=== PATIENT | female | born 1950 | race Caucasian/White ===

== ENCOUNTER 2021-11-20 07:53 | Outpatient (CLI) | payer MEDICARE, OTHER, SELFPAY ==
--- NOTE | 2021-11-13 14:33 | ONC.NURNOTE ---
Received referral from primary care to see patient again per: Dr. Contreras follow up new spot noted on rib. Looking through [facility], it noted abnormal marrow edema involving the right proximal left 10th rib may be secondary to stress reaction or degenerative changes at the left costovertebral joint. No discrete fracture identified. Consider follow up with CT if there is clinical concern for fracture. Carrier Operator contacted [facility] and they could find no other documentation regarding rationale for seeing. Carrier Operator left message earlier this week as well. Patient not scheduled, will await more information if needed.
== END 2021-11-20 07:54 | disposition home or self-care (01) ==
LOC: INJ CL 07:56
PROVIDERS: PCP Family Medicine; Visit Provider Family Medicine
DX: M51.36 Other intervertebral disc degeneration, lumbar region (principal); M54.16 Radiculopathy, lumbar region
CPT/HCPCS: 62323; J0702; Q9966

== ENCOUNTER 2022-01-11 09:41 | Outpatient (CLI) | payer MEDICARE, OTHER, SELFPAY ==
--- NOTE | 2022-01-11 12:01 | W.ANESCHARGE ---
Anesthesia Charges Start Date/Time Anesthesia Start Date: 01/11/22 Anesthesia Start Time: 11:28 Stop Date/Time Anesthesia Stop Date: 01/11/22 Anesthesia Stop Time: 11:58 Summary Emergency: No Extremes of Age: Over 71-CPT [id number]
== END 2022-01-11 09:42 | disposition home or self-care (01) ==
PROVIDERS: PCP Family Medicine; Visit Provider Internal Medicine Gastroenterology
DX: Z12.11 Encounter for screening for malignant neoplasm of colon (principal); K63.5 Polyp of colon; Z86.010 Personal history of colon polyps
CPT/HCPCS: 00811; 45380; 88305; 99100

== ENCOUNTER 2022-03-02 09:07 | Outpatient (CLI) | payer MEDICARE, OTHER, SELFPAY ==
[2022-03-02 14:36] LABS: Albumin* 4.6 g/dL (3.3-5.0); Chloride* 87 mmol/L (96-114)
[2022-03-02 14:37] LABS: Potassium* 4.5 mmol/L (3.6-5.1); Sodium* 128 mmol/L (135-149)
[2022-03-02 14:39] LABS: Alkaline Phosphatase* 104 U/L (40-150); Aspartate Amino Transferase* 59 U/L (12-35); Bilirubin Total* 0.4 mg/dL (0.1-1.5); Blood Urea Nitrogen* 15 mg/dL (7-30); Carbon Dioxide* 30 mmol/L (20-32); Creatinine* 0.5 mg/dL (0.5-1.5); Estimated Glomerular Filt Rate 101 ml/min
[2022-03-02 14:40] LABS: Alanine Aminotransferase* 49 U/L (4-35); Calcium* 9.1 mg/dL (8.4-10.6); Glucose* 100 mg/dL (60-115)
== END 2022-03-02 09:08 | disposition home or self-care (01) ==
LOC: FRMREF 09:19
PROVIDERS: PCP Family Medicine; Visit Provider Dermatology
DX: L30.9 Dermatitis, unspecified (principal)
CPT/HCPCS: 80053

== ENCOUNTER 2022-03-23 08:46 | Outpatient (CLI) | payer MEDICARE, OTHER, SELFPAY | END 2022-03-23 08:47 | disposition home or self-care (01) | LOC: INJ CL 08:47 | PROVIDERS: PCP Family Medicine; Visit Provider Family Medicine | DX: M51.36 Other intervertebral disc degeneration, lumbar region (principal); M54.16 Radiculopathy, lumbar region | CPT/HCPCS: 62323; J0702; Q9966 ==

== ENCOUNTER 2022-04-27 08:48 | Outpatient (CLI) | payer MEDICARE, OTHER, SELFPAY | END 2022-04-27 08:49 | disposition home or self-care (01) | LOC: INJ CL 08:49 | PROVIDERS: PCP Family Medicine; Visit Provider Family Medicine | DX: M51.36 Other intervertebral disc degeneration, lumbar region (principal); M54.16 Radiculopathy, lumbar region | CPT/HCPCS: 62323; J0702; Q9966 ==

== ENCOUNTER 2023-01-04 06:39 | Outpatient (CLI) | payer MEDICARE, OTHER, SELFPAY | END 2023-01-04 06:40 | disposition home or self-care (01) | LOC: INJ CL 06:39 | PROVIDERS: PCP Family Medicine; Visit Provider Family Medicine | DX: M54.16 Radiculopathy, lumbar region (principal); M51.36 Other intervertebral disc degeneration, lumbar region | CPT/HCPCS: 62323; J0702; Q9966 ==

== ENCOUNTER 2023-09-23 12:58 | Outpatient (CLI) | payer MEDICARE, OTHER, SELFPAY | END 2023-09-23 12:59 | disposition home or self-care (01) | LOC: INJ CL 13:00 | PROVIDERS: PCP Family Medicine; Visit Provider Family Medicine | DX: M54.16 Radiculopathy, lumbar region (principal); M51.36 Other intervertebral disc degeneration, lumbar region | CPT/HCPCS: 62323; Q9966 ==

== ENCOUNTER 2025-02-25 06:05 | Day surgery (SDC) | payer MEDICARE, OTHER, SELFPAY ==
[2025-02-25] VITALS (7 sets, daily range): BP systolic 128–153; BP diastolic 63–71; PULSE 84–95; RESP 16; TEMP 36.4–37.2; O2SAT 94–98; BMI 22.1
[2025-02-25] MEDS: ETHYL CHLORIDE 1 APPLICATION 1 APPLIC TOPICAL (06:55)
[2025-02-25] MEDS: BUPIVACAINE 0.5% 30 ML INJECTION (06:55)
[2025-02-25] MEDS: LIDOCAINE 1%-EPI 1:100,000 20 ML INFILTRATI (06:55)
--- NOTE | 2025-02-25 07:16 | SUR.PREOP ---
SAME DAY SURGERY LOCAL INJECTION SITE VERIFICATION WAS PERFORMED BY SURGEON/PA AND PATIENT PRIOR TO LOCAL ANESTHETIC BEING INJECTED TO OPERATIVE SITE.
--- NOTE | 2025-02-25 07:19 | SUR.PHASEI ---
Vital signs during procedure documented in Phase I vital signs worksheet
[2025-02-25] MEDS: BACITRACIN OINTMENT BULK TUBE 1 APPLIC TOPICAL (07:32)
--- NOTE | 2025-02-25 07:34 | P.ORPRC_ITS ---
Procedure Note Date of procedure: 02/25/25 Procedure: PREOPERATIVE DIAGNOSIS: 1. Left ring finger flexor tenosynovitis - trigger finger POSTOPERATIVE DIAGNOSIS: 1. Left ring finger flexor tenosynovitis - trigger finger PROCEDURE: 1. Left ring finger flexor tendon sheath open release (A1 kyle) SURGEON: Tyrell Mcdonadl MD. INDEPENDENT INSURANCE ADJUSTER: LIAM Thorpe ANESTHESIA: Local anesthetic 6ml via 50:50 mixture of 1% Lidocaine with epi and 0.5% marcaine plain EBL: 2ml IMPLANTS: None TOURNIQUET: None COMPLICATIONS: None evident INDICATIONS: The patient is a pleasant 74-year-old female who has experienced left ring finger catching/triggering for number of months. It has progressively gotten worse. Given the failure of nonoperative management, and how this affects daily life, surgery was recommended. DESCRIPTION OF PROCEDURE: Following a thorough discussion of risks, benefits, and alternatives consent was obtained and the operative digit(s) was marked. The patient was brought to the operating room and placed supine on the operating table. Local anesthesia induction was undertaken in preop holding. No antibiotics were administered as this was planned to be a local case only. Proper time-out was performed identifying proper patient, site, and procedure. The operative extremity was prepped and draped in the appropriate sterile fashion using ChloraPrep. An incision was made on the palmar surface of the hand overlying the MCP joint region of the appropriate digit(s) respecting the palmar creases being cautious not to cross these perpendicularly. Sharp incision through the skin, and blunt dissection through subcutaneous tissue allowing protection of crossing neurologic structures. The A1 kyle was visualized directly. It was incised sharply with a 15 blade. It was released completely from its distal to proximal extent under direct visualization. The tendon was inspected and found to be mildly striated consistent with some friction. Otherwise, it was intact. The tendon was removed out of the wound, and further inspected. The patient was asked to manually flex and extend the digits and showed no further catching. The catching which was visualized after tourniquet inflation, was no longer evident with reproduction of a manual fist and relaxation. Closure was performed with 4-O nylon in interrupted fashion. Soft dressings were applied, and the patient was transferred to the recovery room in stable condition. PLAN: 1. Encourage elevation of the operative extremity. 2. Range of motion and icing of the fingers and hand/wrist as tolerated/needed. 3. Ibuprofen/acetaminophen as needed for pain control. 4. Follow up with PA visit in 12-16 days for wound check and suture removal.
== END 2025-02-25 08:03 | disposition home or self-care (01) ==
LOC: OR 06:06
PROVIDERS: PCP Family Medicine; Visit Provider Orthopaedic Surgery Sports Medicine
PROC: (CPT 26055; principal; 2025-02-25 07:15)
DX: M65.342 Trigger finger, left ring finger (principal); M65.842 Other synovitis and tenosynovitis, left hand
CPT/HCPCS: 26055; J0665